=== PATIENT | male | born 1960 | race African-American/Black ===

== ENCOUNTER 2018-08-14 15:22 | Emergency (ER) | payer MEDICAID ==
[~2018-08-14] VITALS: Ht 167.6 cm; Wt 73.0 kg
[~2018-08-14 15:22] MED LIST: METFORMIN
[2018-08-14 17:06] VITALS: BP 112/80
== END 2018-08-14 17:06 | disposition home or self-care (01) ==
LOC: ER 15:22
DX: L23.9 Allergic contact dermatitis, unspecified cause (principal); E11.9 Type 2 diabetes mellitus without complications; F31.9 Bipolar disorder, unspecified; Z79.84 Long term (current) use of oral hypoglycemic drugs
CPT/HCPCS: 99283